=== PATIENT | female | born 1935 | race Caucasian/White ===

== ENCOUNTER 2021-09-09 06:18 | Day surgery (SDC) | payer MEDICARE ==
[~2021-09-09 06:18] MED LIST: CARV12.511 PO; LEVO50CA4 PO
[2021-09-09] MEDS ORDERED: 0.9%NACL 1000ML 1,000 ML IV ONE (06:27)
[2021-09-09 06:42] VITALS: BP 143/69
[2021-09-09] MEDS ORDERED: PROPOFOL 10 MG/ML 20ML VIAL IV ONE ×2 (08:28→08:39)
[2021-09-09 08:55] VITALS: BP 105/35
[2021-09-09 09:00] VITALS: BP 107/34
[2021-09-09 09:12] VITALS: BP 144/53
[2021-09-09 09:25] VITALS: BP 130/72
== END 2021-09-09 09:44 ==
LOC: DAH 06:18 → ENDO 06:18
PROVIDERS: ATTEND Internal Medicine Gastroenterology
DX: D50.9 Iron deficiency anemia, unspecified (principal); K57.30 Diverticulosis of large intestine without perforation or abscess without bleeding; K25.9 Gastric ulcer, unspecified as acute or chronic, without hemorrhage or perforation; K22.89 Other specified disease of esophagus; K31.89 Other diseases of stomach and duodenum; E78.5 Hyperlipidemia, unspecified; N18.9 Chronic kidney disease, unspecified; E03.9 Hypothyroidism, unspecified; Z90.49 Acquired absence of other specified parts of digestive tract; Z79.899 Other long term (current) drug therapy; Z20.822 Contact with and (suspected) exposure to COVID-19
CPT/HCPCS: 43239; 45378; 87635; 88305; 88342; A4215 ×2; A4221; A4222; A4223; A4606; A4620; A4663; C9803; J2704 ×2; J7030